=== PATIENT | female | born 2000 ===

== ENCOUNTER 2021-11-25 19:21 | Emergency (ER) | payer OTHER ==
[~2021-11-25] VITALS: Ht 162.6 cm; Wt 52.3 kg
[2021-11-25 19:28] VITALS: TEMP 97.2
[2021-11-25 20:00] VITALS: BP 112/70; PULSE 85
== END 2021-11-25 20:00 | disposition home or self-care (01) ==
LOC: COL.ER 19:21
DX: M79.601 Pain in right arm (principal)